=== PATIENT | female | born 1960 | race Caucasian/White ===

== ENCOUNTER 2016-10-26 15:43 | Inpatient (IN) | payer SELFPAY ==
[~2016-10-26] VITALS: Ht 162.6 cm; Wt 68.6 kg
--- NOTE | ~2016-10-26 | ER ---
PATIENT'S NAME: MEGGAN RIVERA [facility] AGE: 56 Y [address] ROOM: [id number] [place], [place] [address] LOCATION: GPCU ADMIT DATE: 10/26/2016 ER/Outpatient Report DISCHARGE DATE: FAMILY PHYSICIAN: Alexis Sahu MD ATTENDING PHYSICIAN: RADHA ROSA TIME OF ARRIVAL: 1543 hours. TIME SEEN: 1628 hours. IDENTIFICATION: A 56-year-old female. CHIEF COMPLAINT: Rapid heartbeat. 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 She went to [facility] today, but has not been seen there before and does not normally doctor there for increased edema and wanted to know what they could do about the swelling in her legs. She was found to have a rapid heartbeat so they sent her here to the emergency room. She really has no complaints of rapid heartbeat. She has had increased lower extremity edema, but it is hard for me to get history from her as far as when this started. Apparently, she has had right lower extremity edema since last March, when asked when it got worse or how long it has been this swollen, both she and her family keep stating that it has been that way since March, but I do believe it is increased here in the last few days. She has a severely discolored legs that is pulseless, erythematous, extremely indurated, and swollen for the length of the entire leg up into her lower abdomen and side. When I tried to pin her down how long it has been like that, I really I am not getting a good answer. She denies any fever or chills. She denies any chest pain. She denies any cough or shortness of breath. She was hospitalized last June for ischemic left leg and underwent an [id number] amputation per Dr. Sykes. She also had right lower extremity DVT and is on chronic anticoagulation and she was diagnosed with a lung mass, but the patient deferred further intervention. She also has cardiomyopathy, but deferred further evaluation. The patient really has not had any followup other than in [place] to manage her INRs, which have been high and low, she said 2 weeks ago she was slightly subtherapeutic with an INR of 1.8 and her Coumadin was increased from 3 mg a day to 3.5 mg a day and she has not had it rechecked yet. Again, she denies pain anywhere. She really has no complaints and she really does not want to be here at this point. ALLERGIES: PATIENT'S NAME: MEGGAN RIVERA [facility] AGE: 56 Y [address] ROOM: [place] [address] [facility]ATION: [facility] ADMIT DATE: 10/26/2016 ER/Outpatient Report DISCHARGE DATE: FAMILY PHYSICIAN: Alexis Sahu MD ATTENDING PHYSICIAN: RADHA ROSA NO KNOWN DRUG ALLERGIES. CURRENT MEDICATIONS: 1. Coumadin 3.5 mg daily. 2. Lorazepam. 3. Mirtazapine. MEDICAL PROBLEMS: Fibromyalgia, breast cancer, status post right mastectomy, lung mass, undiagnosed, the patient refused further workup in June, DVT on chronic anticoagulation, peripheral vascular disease, status post amputation, cardiomyopathy, unknown etiology. FAMILY HISTORY: Positive for heart disease. SOCIAL HISTORY: The patient had been living in [place], she is currently staying in [place]. Tobacco use, 1/4th pack per day. She has been smoking for 36 years and records reflect a history of 2 packs per day. Alcohol use, denies. Drug use, denies. REVIEW OF SYSTEMS: All systems reviewed and negative other than what is noted in HPI. PHYSICAL EXAMINATION: VITAL SIGNS: Weight 68.3 kg. Blood pressure 142/85, pulse 114, respirations 22, temp 99.2, and sats 97%. HEENT: Head: Normocephalic, atraumatic. Ears: TMs translucent both ears. Eyes: Pupils equal and reactive to light and accommodation. Extraocular movements intact. Nose: Mucosa pink, no lesions. Mouth: No lesions. Pharynx benign. NECK: Supple. No lymphadenopathy. No thyromegaly. LUNGS: Clear to auscultation. HEART: Sinus tachycardia. No murmur, rub, or gallop. ABDOMEN: Bowel sounds present. Soft, nondistended. No hepatosplenomegaly. No palpable masses. She does have induration and swelling noted in the right abdomen and flank area with some mild erythema. EXTREMITIES: Left lower extremity, previous AKA. No drainage or erythema. Right lower extremity, she has necrotic toes, all of her toes, that are black in color in the distal toes. She has erythema the entire length of her legs, induration, no palpable pulses, and I am unable to Doppler her pulse, dorsalis pedis or posterior tib on the right-side. She has no tenderness to palpation. Her leg is warm. It is not cold. Her sensation is intact. She has swelling and induration in the entire length of her legs up into the lower abdomen and PATIENT'S NAME: MEGGAN RIVERA [facility] AGE: 56 Y [address] ROOM: [place] [address] LOCATION: GPCU ADMIT DATE: 10/26/2016 ER/Outpatient Report DISCHARGE DATE: FAMILY PHYSICIAN: Alexis Sahu MD ATTENDING PHYSICIAN: RADHA ROSA [facility]. BREASTS/SKIN: She is status post mastectomy on the right. I do not see any chest wall lesions. Rest of her skin she is pale. LABORATORY DATA: EKG sinus tachycardia at 114 beats per minute. Nonspecific lateral T-wave changes. No prior EKG available at this time for comparison. Blood cultures x2 have been ordered and those results are pending. Lactate elevated at 2.2. Hemoglobin 12.5, hematocrit 42.7, platelets 256, and white count 9.8 with a normal differential. D-dimer elevated at 1.94. Hemoglobin 12.5, hematocrit 42.7, platelets 256, and white count 9.8. Sodium 144, potassium 3.1, chloride 107, CO2 28, BUN 8, and creatinine 1.0. Blood sugar 93. Liver enzymes normal. Cardiac enzymes negative x1. Procalcitonin 0.07. TSH 3.740. UA 2-5 white cells, 0-2 red cells. Urine culture pending. IMPRESSION: 1. Right lower extremity gangrene, right lower extremity ischemia, lung mass, elevated D-dimer, cannot exclude pulmonary embolus with her tachycardia and elevated D-dimer. The patient refuses a CT scan. 2. Hypokalemia. PLAN: Dr. Sykes was consulted. He is actually in the operating room at this time. We will admit the patient per Dr. Rosa with Dr. Sykes consulting. When she presented in June with ischemia of her left leg, she also had ischemic changes of her right leg at that time, but she presented with sepsis. With the erythema of her right leg, we are going to give her a dose of Zosyn and vancomycin here in the emergency room and she will be admitted to PCU telemetry per Dr. Rosa. Cultures are pending and Dr. Sykes will provide consultation. Venous and arterial Dopplers were ordered, but Dr. Sykes did contact the emergency room and requested that those be canceled and he will obtain those when he sees the patient. All questions have been answered. MD BELKYS RESENDIZ/rosa maria /[id number] d: 10/27/16 0011 t: 11/02/16 1502, OUTPATIENT REPORT
--- NOTE | ~2016-10-26 | HP ---
PATIENT'S NAME: MEGGAN RIVERA [facility] AGE: 56 Y [address] ROOM: [place] [address] LOCATION: GPCU ADMIT DATE: 10/26/2016 History & Physical DISCHARGE DATE: FAMILY PHYSICIAN: Alexis Sahu MD ATTENDING PHYSICIAN: RADHA ROSA DATE OF SERVICE: CHIEF COMPLAINT: Worsening edema. HISTORY OF PRESENT ILLNESS: The patient is a 56-year-old female, known to me from prior hospital stay. At that point, she had an extended complex hospitalization where she presented with bilateral lower extremity gangrene. She was also found to have a cavitary lung mass, and bichamberal cardiomyopathy with ejection fraction of 10. The patient has undergone a BKA of her left lower extremity. However, she opted not to pursue additional workup or amputation of her right lower extremity. The mass was never biopsied. She was never catheterized and essentially was on comfort measures. Because of the difficult situation, she was transferred to the transitional care unit where she improved and eventually went home with her mother. Today, she comes back with worsening generalized edema as well as some erythema of her right lower extremity. She also wants a "second opinion" for the symptoms. When I engaged the patient with a little bit more as to why she came in, she told me "I want to make my kids feel better about taking care of me." I asked her if she wants further workup for the mass or cardiomyopathy, and she does not want any. In the ER, the patient refused a CTA of her chest to rule out a PE. She was also seen by Dr. Sykes of Vascular Surgery and does not wish to undergo an amputation for necrotic toes. REVIEW OF SYSTEMS: Significant for worsening weight gain and dyspnea on exertion. All systems have been reviewed and are negative aside from pertinent positives mentioned above. PAST MEDICAL HISTORY: As per that described in the HPI. SURGICAL HISTORY: Significant for left BKA. SOCIAL HISTORY: Significant for ongoing tobacco use and longstanding history thereof. PATIENT'S NAME: MEGGAN RIVERA [facility] AGE: 56 Y [address] ROOM: [place] [address] LOCATION: GPCU ADMIT DATE: 10/26/2016 History & Physical DISCHARGE DATE: FAMILY PHYSICIAN: Alexis Sahu MD ATTENDING PHYSICIAN: RADHA ROSA CURRENT MEDICATIONS: 1. Diazepam. 2. Mirtazapine. 3. Warfarin. FAMILY HISTORY: Reviewed and is noncontributory. PHYSICAL EXAMINATION: VITAL SIGNS: Blood pressure 122/83, heart rate is 97, temperature is 97, saturating 100% on room air, respirations are 18. GENERAL: Appears as a slightly malnourished female, in no acute distress. NEUROLOGICAL: Nonfocal. EYES: Exam shows pupils are equal and reactive to light. LYMPHATIC: Exam shows no cervical lymphadenopathy. ENDOCRINE: Exam shows no thyromegaly. LUNGS: Exhibit crackles to bilaterally, approximately 1/3 up from bases. HEART: Rate is regular with a 2/6 systolic murmur. There is generalized anasarca up to her abdomen. GI: Abdomen is soft, nontender. : Reveals no costovertebral angle tenderness. VASCULAR: Reveals diminished pedal pulses over the right lower extremity. There is dry gangrene of all digits, which are all black and discolored. SKIN: Exam reveals erythema and tenderness of the right lower extremity. PSYCHIATRIC: Reveals a very flat affect but preserved cognition. MUSCULOSKELETAL: Unremarkable. PSYCHIATRIC: Negative for any suicidal or homicidal ideation. LABORATORY AND DIAGNOSTIC DATA: Studies performed in the ER significant for chest x-ray, which demonstrates congestion with questionable bilateral infiltrates. Lab results are significant for potassium of 3.1, albumin is 2.4. Negative cardiac enzymes. TSH 3.7. White count 9.8, hemoglobin 12.5, platelets 256. D-dimer is 1.94. INR is 2.7. Procalcitonin is 0.07. Urinalysis is unremarkable. ASSESSMENT AND PLAN: This is a 56-year-old female, who is being admitted with volume overload, likely due to acute on chronic systolic congestive heart failure, which has not been worked up. Individual problems to be addressed as follows: 1. Volume overload. I did offer the patient to start Lasix therapy and she concurred. As far as further workup of her heart failure, she refuses. PATIENT'S NAME: MEGGAN RIVERA [facility] AGE: 56 Y [address] ROOM: [place] [address] LOCATION: GPCU ADMIT DATE: 10/26/2016 History & Physical DISCHARGE DATE: FAMILY PHYSICIAN: Alexis Sahu MD ATTENDING PHYSICIAN: RADHA ROSA As such, we will start her on Lasix and place a Bess catheter if needed, so that we can at least diurese her. 2. Right lower extremity gangrene. The patient has been seen by Dr. Sykes, who has ordered arterial venous Dopplers. The patient does have a history of bilateral deep venous thrombosis and is currently on Coumadin. 3. Lung mass, known from prior hospitalization. The patient refuses further workup. 4. Goals of care. I will make the patient DNR/DNI and request a palliative care consultation, so we can further decide about her disposition. Time dedicated to the patient's encounter is 35 minutes. MD OMAR SMITH/rosa maria /[id number] D: [id number] T: [id number] HISTORY & PHYSICAL
--- NOTE | ~2016-10-26 | CON ---
PATIENT'S NAME: MEGGAN RIVERA [facility] AGE: 56 Y [address] ROOM: [place] [address] LOCATION: GPCU ADMIT DATE: 10/26/2016 Consultation DISCHARGE DATE: 10/27/2016 FAMILY PHYSICIAN: Alexis Sahu MD ATTENDING PHYSICIAN: Toni Marvin V DATE OF CONSULTATION: 10/27/2016 LOCATION: [place] [address]. REFERRING PHYSICIAN: Dr. Marvin. This is a palliative care for goals of care. HISTORY OF PRESENT ILLNESS: This 56-year-old female was admitted on 10/26/2016 with worsening edema in right leg and abdomen. She has been in the hospital previously and was found to have a cavitary lung mass and bi chamber cardiomyopathy with ejection fraction of 10%. She had undergone a BKA in her left lower extremity due to blood clots bilaterally. Ended up having necrotic toes on right foot. The patient had refused to biopsy mass. Just wanted to live out the rest of her life and be comfortable. She went home on home health at her mother's and is now living with her daughter and daughter was concerned about the increasing edema in her left leg and and abdomen. She was brought into the ER for 2nd opinion. Dr. Sykes from Vascular Surgery had seen the patient, and the patient continues to refuse interventions. PAST MEDICAL HISTORY: Fibromyalgia, breast cancer, right mastectomy in 08/19/2016 with sentinel node sampling, did have chemotherapy and radiation. PAST SURGICAL HISTORY: Mastectomy and left BKA FAMILY HISTORY: Positive for heart disease. ALLERGIES: VENOM. CURRENT MEDICATIONS: 1. Warfarin 3.5 mg daily. 2. Potassium chloride 40 mEq p.o. 3. Furosemide 40 mg b.i.d. IV. 4. Acetaminophen 650 mg every 6 hours p.r.n. PATIENT'S NAME: MEGGAN RIVERA [facility] AGE: 56 Y [address] ROOM: [place] [address] LOCATION: GPCU ADMIT DATE: 10/26/2016 Consultation DISCHARGE DATE: 10/27/2016 FAMILY PHYSICIAN: Alexis Sahu MD ATTENDING PHYSICIAN: Toni Marvin V 5. Mirtazapine 15 mg at bedtime. 6. Diazepam 10 mg at bedtime. 7. Vancomycin 1.25 g daily. 8. Zosyn 4.5 g. SOCIAL HISTORY: The patient is . Has 4 children. Lives with her daughter. She is a former smoker of two packs per day past 30 years. No illicit drug use. REVIEW OF SYSTEMS: A 10-point review of systems was done and is negative except as mentioned in HPI and listed below. MUSCULOSKELETAL: Denies any pain or discomfort. VASCULAR: Edema. Toes are blackened with some improvement since seen previously GI: No nausea, vomiting, diarrhea, or constipation. Last BM 10/26. PHYSICAL EXAMINATION: GENERAL: This is a 56-year-old female, well developed. Alert and oriented, in no acute distress VITAL SIGNS: Temperature 98.2, pulse 103, respirations 18, blood pressure 179/76, O2 saturations 94%. She is 5 feet 4 inches, weighs 151 pounds with a BMI of 25.5. SKIN: Warm and dry. Toes blackened on tips on right foot. Left stump well healed. No redness. HEENT: Normocephalic, atraumatic. Sclerae nonicteric. Conjunctivae pale pink. Mouth is pink, moist without exudate. LYMPH: No cervical adenopathy or thyromegaly. RESPIRATORY: Clear to auscultation bilaterally. ABDOMEN: Soft, nontender. Positive bowel tones. No hepatosplenomegaly. NEUROLOGICAL: Grossly intact. MUSCULOSKELETAL: Appropriate range of motion in right leg and upper extremities. EXTREMITIES: No cyanosis, left BKA and toes necrotic on right foot. Palliative performance scale is 50% mainly sitting here and lying, unable do any work, extensive disease, considerable assistance needed. Intake is normal. Conscious level is full. LABORATORY DATA: Sodium 144, potassium 3.1, BUN 8, creatinine 1.0, albumin is 2.4, alkaline phosphatase is elevated at 146, AST is 19, ALT is 10. White count 9.8, hemoglobin 12.5, hematocrit 42.7, and 256,000 platelets. IMPRESSION: PATIENT'S NAME: MEGGAN RIVERA [facility] AGE: 56 Y [address] ROOM: [place] [address] LOCATION: GPCU ADMIT DATE: 10/26/2016 Consultation DISCHARGE DATE: 10/27/2016 FAMILY PHYSICIAN: Alexis Sahu MD ATTENDING PHYSICIAN: Toni Marvin V Shortness of breath and edema. PLAN: The patient previously known from other admission. She has a very good understanding of her overall condition and with a previous history of breast cancer does not want to go through treatment for the lung mass. Does not want to have any interventions done on right leg. She is refusing all interventions. Just wants to go home. Discussed the option of hospice again. The patient is open to have in hospice and extra support in daughter's home. Daughter is the 24-hour caregiver, but needs some extra assistance. The patient just wants to live out the rest of her life being comfortable. She is okay to notify hospice team. They will contact her by phone and set up a meeting. Code status and advance directive: The patient is a do not resuscitate/do not intubate. Recommendations: Dyspnea, the patient is currently getting Lasix IV. May consider p.o. Lasix, going home, to help with edema. Encouraged to call if any other needs on transfer back home and transitioning into hospice. Thank you for allowing me to assist this patient and family. Total time was 45 minutes with 40 minutes for counseling and coordination of care. CINDI VALENTE NP FOR MD PADMA LANDIS/rosa maria /[id number] d: 10/27/162350 t: 11/03/16 165, CONSULTATION REPORT
--- NOTE | ~2016-10-26 | DS ---
PATIENT'S NAME: MEGGAN RIVERA [facility] AGE: 56 Y [address] ROOM: [address] [place], [place] [address] LOCATION: GPCU ADMIT DATE: 10/26/2016 Discharge Summary DISCHARGE DATE: 10/27/2016 FAMILY PHYSICIAN: Alexis Sahu MD ATTENDING PHYSICIAN: Toni Marvin V ATTENDING PHYSICIAN: Ulises Rodrigez MD. PRIMARY CARE PHYSICIAN: Alexis Sahu MD. FINAL DIAGNOSES: 1. Acute on chronic combined congestive heart failure. 2. Right lower extremity necrotic toes. 3. Significant peripheral vascular disease. 4. Long-term anticoagulation. 5. Hypokalemia. 6. History of lung mass, refused evaluation. 7. History of left AKA. 8. Tobacco use. CONSULTATIONS: 1. Vascular Surgery, Dr. Sykes. 2. Palliative care. PROCEDURES: None. REASON FOR ADMISSION: This is a 56-year-old female who presented with redness of right lower extremity along with the swelling. She also wanted evaluation for necrotic toes of the right foot. The patient presented to the ER, was evaluated, and then further admitted to [facility]. Please see Dr. Marvin' admission H and P for further details. DIAGNOSTIC STUDIES: Lactate 2.2 on admission. CPK 53. Troponin I less than 0.04. CBC was done on admission, it showed a white count of 9.8, hemoglobin 12.5, hematocrit 42.7, platelets 256. CMP was done and showed normal electrolytes, potassium on admission was 3.1, was replaced during this admission. Alkaline phosphatase was 146. Kidney function was within normal range. The patient is on Coumadin. Her INR was therapeutic at 2.7. UA showed rare bacteria and rare wbc clumps. TSH 3.74. Procalcitonin level 0.07. D-dimer elevated at 1.94. The patient had a chest x-ray done on admission that showed cardiac enlargement with vascular congestion and hazy infrahilar and bibasilar opacity likely reflecting edema or infiltrate and atelectasis along with pleural fluid, area of linear atelectasis, infiltrate, and scarring at the lateral left mid lung was noted as well. Urine culture was done and showed likely contaminant. Blood culture was negative during this admission. PATIENT'S NAME: MEGGAN RIVERA [facility] AGE: 56 Y [address] ROOM: [address] [place], [place] [address] LOCATION: GPCU ADMIT DATE: 10/26/2016 Discharge Summary DISCHARGE DATE: 10/27/2016 FAMILY PHYSICIAN: Alexis Sahu MD ATTENDING PHYSICIAN: Toni Marvin V [facility] COURSE: The patient was admitted for evaluation and management of necrotic toes and increased redness of the right lower extremity along with cellulitis like picture and the swelling. After presentation to [facility], the patient was evaluated in the ER. Vascular Surgery, Dr. Sykes was consulted. However, the patient started refusing treatment. She has a history of lung cancer that has not been evaluated. She refused further invasive treatment and all other measures. Dr. Sykes ordered venous and arterial Dopplers for right lower extremity to investigate for a right lower extremity necrotic toe; however, the patient refused. She also refused treatment and workup for her lung mass. Then, the patient was diuresed overnight with Lasix. Her potassium was replaced. The next morning, she was off oxygen and was not short of breath. Her lower extremity edema had resolved. At that point of time, there was concern of right lower extremity cellulitis and the patient also complained of some urinary symptoms as well. She was placed on Keflex and agree to be on Keflex. She wants to be on comfort cares and plans to be on hospice when she gets home. Since the patient planned to be on hospice, we discontinued Lasix. The patient was found to be euvolemic. She refused any further workup at this point of time. Palliative Care was consulted and the patient decided to go on hospice when she got home. Arrangements will be made per patient's wishes. Family is aware of the patient's wishes for being a DNR/DNI and also to be on hospice. The patient discharged since she denies all further workup and treatment. The patient discharged to home on hospice. DISCHARGE INSTRUCTIONS: The patient is discharged on a diet as tolerated. Activities as tolerated. She is to follow up with Dr. Sahu in 3-[address] Sahu to check a CBC, BMP, PT/INR at followup. DISCHARGE MEDICATIONS: 1. Diazepam 10 mg p.o. q.h.s. 2. Remeron 7.5 to 15 mg p.o. q.h.s. 3. Coumadin 2.5 mg p.o. daily, PCP to manage based on PT/INR. 4. Coumadin 1 mg p.o. daily. 5. Percocet 5/325 mg 1-2 tabs p.o. q.4 hours p.r.n. pain. 6. Keflex 500 mg p.o. t.i.d. for 10 days. 7. Florastor 250 mg p.o. b.i.d. for 2 weeks. This patient was managed by hospitalist, Palliative Care, and Vascular Surgery teams during this admission. PATIENT'S NAME: MEGGAN RIVERA [facility] AGE: 56 Y [address] ROOM: [place] [address] LOCATION: GPCU ADMIT DATE: 10/26/2016 Discharge Summary DISCHARGE DATE: 10/27/2016 FAMILY PHYSICIAN: Alexis Sahu MD ATTENDING PHYSICIAN: Toni Marvin MD MT/modl /[id number] CC: Alexis Sahu MD d: 10/28/16 1522 t: 10/29/162010, DISCHARGE SUMMARY
[~2016-10-26 15:43] MED LIST: COUMADIN ** IA5 MG PO; PERCOCET 5-3251 EACH PO; REMERON15 MG PO; TYLENOL325 MG PO
[2016-10-26 16:47] LABS: BASOPHIL # 0.1 K/uL (0.0-0.2); EOSINOPHIL # 0.1 K/uL (0.0-0.5); EOSINOPHIL % 0.6 %; HEMOGLOBIN 12.5 g/dL (10.0-15.0); IMMATURE GRANULOCYTE % 0.1 %; LYMPHOCYTE # 2.2 K/uL (0.8-4.0); LYMPHOCYTE % 22.3 %; MCV 82.9 fl (83.0-98.0); MONOCYTE # 0.6 K/uL (0.0-1.0); MONOCYTE % 6.1 %; MPV 11.7 fl (9.4-12.4); NEUTROPHIL # (ANC) 6.8 K/uL (1.8-7.8); NEUTROPHIL % 69.9 %; NRBC % 0 /100WBC (0-0.00); WBC 9.8 K/uL (4.0-11.0)
[2016-10-26 16:48] LABS: HEMATOCRIT 42.7 % (33.0-46.0); MCH 24.3 pg (27.0-34.0); MCHC 29.3 gm/dL (32.0-36.5); PLATELET COUNT 256 K/uL (150-450); RBC 5.15 M/uL (3.50-5.50); RDW-CV 17.8 % (11.9-14.6)
[2016-10-26 16:57] LABS: INR - (THERAPEUTIC) 2.7 (0.9-1.1); PROTIME 31.2 SECONDS (9.6-11.1); PTT 31 SECONDS (25-32)
[2016-10-26 17:08] LABS: ALBUMIN 2.4 gm/dL (3.5-5.0); ALK PHOS 146 IU/L (33-138); ANION GAP 12.1 (10.0-19.0); AST 19 IU/L (10-40); BLOOD UREA NITROGEN 8 mg/dL (6-24); CALCIUM 8.1 mg/dL (8.5-10.5); CHLORIDE 107 mMol/L (96-110); CO2 28 mMol/L (22-32); CPK 53 IU/L (21-215); ESTIMATED GFR (MDRD EQUATION) 58; POTASSIUM 3.1 mMol/L (3.7-5.1); SODIUM 144 mMol/L (135-145); TOTAL PROTEIN 7.1 g/dL (6.0-8.4)
[2016-10-26 17:11] LABS: ALT < 10 IU/L (12-78); TOTAL BILIRUBIN 0.7 mg/dL (0.0-1.5)
[2016-10-26 18:41] LABS: BILIRUBIN URINE NEGATIVE (NEGATIVE); BLOOD URINE 10 /UL (NEGATIVE); COLOR URINE YELLOW (YELLOW); GLUCOSE URINE NEGATIVE (NEGATIVE); KETONE URINE NEGATIVE (NEGATIVE); LEUKOCYTES URINE NEGATIVE /UL (NEGATIVE); NITRITE URINE NEGATIVE (NEGATIVE); PROTEIN URINE 100 mg/dL (NEGATIVE); TURBIDITY URINE CLEAR (CLEAR); UROBILINOGEN URINE NORMAL (NORMAL)
[2016-10-26 18:53] LABS: BACTERIA URINE RARE (NEGATIVE); EPITHELIAL URINE 0-2 #/HPF (NEGATIVE); HYALINE CAST URINE 0-2 #/LPF (NEGATIVE); RBC URINE 0-2 #/HPF (NEGATIVE); WBC CLUMPS URINE RARE (NEGATIVE)
[2016-10-26] MEDS ORDERED: VALIUM10 MG PO (21:06)
--- NOTE | 2016-10-27 02:03 | NUR ---
Patient arrived to ER from [facility] by private vehicle. Patient went to clinic per family request to have right leg checked out. The clinic sent her to ER where she refused a CT scan and testing. Admitted to PCU 6309 and continues to refuse testing. Patient is DNR/DNI and Pallative care consult in morning. HX of breast cancer and lung masses, CHF, fibromyalgia, depression, and current everyday smoker. SX of right mastectomy and left above the knee amputation.
--- NOTE | 2016-10-27 04:08 | NUR ---
Significant Event: A&Ox3, VSS on room air. Dopplar pulse on right foot. Black toes noted, extremity is red, warm, and firm. Left above the knee amputation red, warm, and firm extending into lower abdomen. Patient refuses futher testing. DNR/DNI, pallative care consult in AM. Patient transfers independently to wheelchair. Patient is steady/competent with transfers. Denies needs. Pleasant and cooperative with cares. Follow up: Pallative care consult in AM.
[2016-10-27] MEDS ORDERED: COUMADIN **IA1 MG PO (09:28)
[2016-10-27] MEDS ORDERED: PERCOCET 5-3251 EACH PO (09:31)
--- NOTE | 2016-10-27 13:18 | NUR ---
1210 Stopped by to review Sophia's chart and talk with her about dismissal plans. Her RN tells me that doctor has rounded and filled out orders so she will be dismissing to home later today with no anticipated needs from CM. Let her know if anything should change to call me and I would be happy to come back and visit with her. I did leave financial assistance application on her bedside table for her.
[2016-10-27] MEDS ORDERED: KEFLEX500 MG PO (13:30)
[2016-10-27] MEDS ORDERED: FLORASTOR250 MG PO (13:33)
== END 2016-10-27 13:50 | disposition disaster alternative care site (69) | DRG 292 ==
LOC: GMED 15:43 → GPCU 20:20
PROVIDERS: Family Medicine; ADMIT Internal Medicine
DX: I50.43 Acute on chronic combined systolic (congestive) and diastolic (congestive) heart failure (principal); I42.9 Cardiomyopathy, unspecified; I70.261 Atherosclerosis of native arteries of extremities with gangrene, right leg; Z51.5 Encounter for palliative care; Z66 Do not resuscitate; E87.6 Hypokalemia; Z85.3 Personal history of malignant neoplasm of breast; Z89.512 Acquired absence of left leg below knee; R91.8 Other nonspecific abnormal finding of lung field; F17.210 Nicotine dependence, cigarettes, uncomplicated; M79.7 Fibromyalgia; Z92.21 Personal history of antineoplastic chemotherapy; Z92.3 Personal history of irradiation
CPT/HCPCS: J1940; J2543; J3370; J7050

== ENCOUNTER → 2017-01-04 | Outpatient (CLI) | payer SELFPAY ==
[~2017-01-04] MED LIST changes: +COUMADIN **IA1 MG PO; +FLORASTOR250 MG PO; +KEFLEX500 MG PO; +VALIUM10 MG PO
== END | disposition disaster alternative care site (69) ==
LOC: GAMB 17:28
DX: I46.9 Cardiac arrest, cause unspecified (principal); R06.9 Unspecified abnormalities of breathing